=== PATIENT | female | born 1975 | race Caucasian/White ===

== ENCOUNTER 2016-08-09 10:31 | Inpatient (IN) | payer OTHER ==
[~2016-08-09] VITALS: Ht 160 cm; Wt 92.5 kg
[2016-08-09 13:30] VITALS: BP 135/83
[2016-08-09] MEDS ORDERED: HYDROmorphone 1 MG/ML, 1ML ONE ×2 (14:29→15:13)
[2016-08-09] MEDS ORDERED: HYDROmorphone PCA 30 MG/30 ML IV PRN ×2 (14:30→17:00)
[2016-08-09] MEDS ORDERED: POLYETHYLENE GLYCOL 17 GM PACKET PO PRN (14:30)
[2016-08-09] MEDS ORDERED: PROMETHAZINE 25 MG/ML, 1ML IM PRN (14:30)
[2016-08-09] MEDS: PLEASE ENTER HEIGHT AND WEIGHT MC SCH ×2 (14:30→22:30)
[2016-08-09] MEDS ORDERED: ONDANSETRON ODT 4 MG PO PRN (14:30)
[2016-08-09] MEDS ORDERED: HYDROmorphone 1 MG/ML, 1ML IV ONE ×4 (14:30→19:30)
[2016-08-09] MEDS ORDERED: LABETALOL 5MG/ML, 20ML IVPush PRN (14:30)
[2016-08-09] MEDS ORDERED: DEXAMETHASONE 4 MG/ML, 1ML IVPush ONE (14:30)
[2016-08-09] MEDS ORDERED: PLEASE ENTER ALLERGIES MC SCH ×2 (14:30)
[2016-08-09] MEDS ORDERED: ONDANSETRON 2MG/ML, 2ML IVPush PRN (14:30)
[2016-08-09] MEDS: SODIUM CHLORIDE 0.9% 1,000 ML IV SCH (14:34)
[2016-08-09 14:46] LABS: ASPARTATE AMINO TRANSFERASE 28 U/L (15-37); BLOOD UREA NITROGEN 13 mg/dL (7-18)
[2016-08-09] MEDS ORDERED: HYDROmorphone PCA 30 MG/30 ML ONE (15:25)
[2016-08-09] MEDS: DEXAMETHASONE 4 MG/ML, 1ML IVPush SCH ×2 (15:30→20:21)
[2016-08-09] MEDS: PLEASE ENTER ALLERGIES MC SCH ×4 (16:15→16:45)
[2016-08-09] MEDS: GABAPENTIN 400 MG CAPSULE PO SCH ×2 (17:32→20:22)
[2016-08-09 18:23] VITALS: BP 134/80
[2016-08-09] MEDS: FAMOTIDINE 20 MG/2 ML IVPush SCH (20:21)
[2016-08-09] MEDS: CARISOPRODOL 350 MG TABLET PO PRN (20:22)
[2016-08-09] MEDS ORDERED: KETOROLAC 30 MG/1 ML IVPush ONE (21:00)
[2016-08-10 00:10] VITALS: BP 128/72
[2016-08-10] MEDS: DEXAMETHASONE 4 MG/ML, 1ML IVPush SCH ×3 (04:11→16:35)
[2016-08-10] MEDS: CARISOPRODOL 350 MG TABLET PO PRN (04:11)
[2016-08-10] MEDS: PLEASE ENTER HEIGHT AND WEIGHT MC SCH (06:05)
[2016-08-10 06:29] LABS: ASPARTATE AMINO TRANSFERASE 15 U/L (15-37); BLOOD UREA NITROGEN 11 mg/dL (7-18)
[2016-08-10] MEDS: GABAPENTIN 400 MG CAPSULE PO SCH ×2 (08:02→16:35)
[2016-08-10] MEDS: FAMOTIDINE 20 MG/2 ML IVPush SCH (08:12)
[2016-08-10 08:20] VITALS: BP 125/81
[2016-08-10] MEDS ORDERED: SENNA/DOCUSATE TABLET PO SCH (09:00)
[2016-08-10] MEDS ORDERED: DIAZEPAM 5 MG/ML, 2ML IV PRN (12:53)
[2016-08-10] MEDS: SODIUM CHLORIDE 0.9% 1,000 ML IV SCH (14:13)
[2016-08-10 16:00] VITALS: BP 119/75
[2016-08-10 17:50] VITALS: BP 120/74
[2016-08-10] MEDS ORDERED: MIDAZOLAM 1 MG/ML, 2ML ONE (19:35)
[2016-08-10] MEDS ORDERED: FENTANYL PF 250 MCG/5ML ONE (19:35)
[2016-08-10] MEDS ORDERED: THROMBIN 20,000 UNIT VIAL TP ONE ×2 (19:58→21:43)
[2016-08-10] MEDS ORDERED: BUPIVACAINE/PF-EPI 0.5% 1:200K ONE (19:58)
[2016-08-10] MEDS ORDERED: BACITRACIN 50,000 UNIT ONE (19:58)
[2016-08-10] MEDS ORDERED: REMIFENTANIL 2 MG ONE (20:02)
[2016-08-10] MEDS ORDERED: KETAMINE 10 MG/ML, 20ML ONE (20:03)
[2016-08-10] MEDS ORDERED: DEXAMETHASONE 4 MG/ML, 1ML ONE (20:56)
[2016-08-10] MEDS ORDERED: PROPOFOL 10 MG/ML, 20ML ONE (20:56)
[2016-08-10] MEDS ORDERED: CEFAZOLIN 1,000 MG ONE (20:56)
[2016-08-10] MEDS ORDERED: SUCCINYLCHOLINE 20 MG/ML, 10ML ONE (20:56)
[2016-08-10] MEDS ORDERED: ROCURONIUM 10 MG/ML ONE (20:56)
[2016-08-10] MEDS ORDERED: PROPOFOL 10 MG/ML, 50ML ONE (20:56)
[2016-08-10] MEDS ORDERED: BACITRACIN 50,000 UNIT IRRIG ONE (21:43)
[2016-08-10] MEDS ORDERED: BUPIVACAINE/PF-EPI 0.5% 1:200K IM ONE (21:44)
[2016-08-10] MEDS ORDERED: ACETAMINOPHEN 325 MG TABLET PO PRN (23:00)
[2016-08-10] MEDS ORDERED: KETOROLAC 30 MG/1 ML IV PRN (23:00)
[2016-08-10] MEDS ORDERED: PROMETHAZINE 25 MG/ML, 1ML IV PRN (23:00)
[2016-08-10] MEDS ORDERED: OXYcodone 5 MG/5 ML ORAL.SOL UDC PO PRN (23:00)
[2016-08-10] MEDS ORDERED: ONDANSETRON 2MG/ML, 2ML IVPush PRN (23:00)
[2016-08-10] MEDS ORDERED: MEPERIDINE/PF 25MG/0.5ML IVPush PRN (23:00)
[2016-08-10] MEDS ORDERED: FENTANYL PF 100 MCG/2ML ONE (23:09)
[2016-08-10] MEDS ORDERED: ONDANSETRON 2MG/ML, 2ML ONE (23:09)
[2016-08-10] MEDS ORDERED: HYDROmorphone 2 MG/ML, 1ML ONE (23:09)
[2016-08-10] MEDS: HYDROmorphone 1 MG/ML, 1ML IV PRN ×4 (23:16→23:58)
[2016-08-10] MEDS: FENTANYL PF 100 MCG/2ML IV PRN ×2 (23:16→23:46)
[2016-08-10] MEDS ORDERED: ACETAMINOPHEN 650 MG/20.3 ML UDC ONE (23:32)
[2016-08-10] MEDS ORDERED: OXYcodone 5 MG/5 ML ORAL.SOL UDC ONE (23:32)
[2016-08-10] MEDS ORDERED: HYDROmorphone PCA 30 MG/30 ML ONE (23:32)
[2016-08-11] MEDS ORDERED: HYDROmorphone PCA 30 MG/30 ML IV PRN ×2 (00:30)
[2016-08-11] MEDS ORDERED: HYDROmorphone 2 MG/ML, 1ML IM PRN (01:30)
[2016-08-11] MEDS ORDERED: METHOCARBAMOL 1,000 MG in DEXTROSE 5% 100 ML IV ONE (01:30)
[2016-08-11] MEDS ORDERED: NS + 20MEQ KCL 1,000 ML IV SCH (01:30)
[2016-08-11] MEDS ORDERED: HYDROmorphone 2MG TABLET PO PRN (01:30)
[2016-08-11] MEDS ORDERED: HYDROcodone/APAP 5/325 TABLET PO PRN (01:30)
[2016-08-11] MEDS ORDERED: BISACODYL 10 MG SUPP PR PRN (01:30)
[2016-08-11] MEDS ORDERED: MAGNESIUM HYDROXIDE 8%, 30ML UDC PO PRN (01:30)
[2016-08-11] MEDS ORDERED: HYDROcodone/APAP 10/325 MG TABLET PO PRN (01:30)
[2016-08-11] MEDS ORDERED: DIPHENHYDRAMINE 50 MG/ML, 1ML IVPush PRN (01:30)
[2016-08-11] MEDS ORDERED: PROMETHAZINE 25 MG/ML, 1ML IM PRN (01:30)
[2016-08-11] MEDS ORDERED: ONDANSETRON 2MG/ML, 2ML IV PRN (01:30)
[2016-08-11] MEDS ORDERED: DIPHENHYDRAMINE 50 MG/ML, 1ML IM PRN (01:30)
[2016-08-11] MEDS ORDERED: DIPHENHYDRAMINE 50 MG CAPSULE PO PRN (01:30)
[2016-08-11] MEDS ORDERED: CEFAZOLIN PMX 2GM/50ML 50 ML IVPB SCH (01:30)
[2016-08-11] MEDS ORDERED: PHARMACY MAY ADJ FOR RENAL FX MC PRN (02:00)
[2016-08-11] MEDS: DEXAMETHASONE 4 MG/ML, 1ML IV SCH ×2 (02:19→08:44)
[2016-08-11 03:57] VITALS: BP 123/77
[2016-08-11 06:41] VITALS: BP 126/73
[2016-08-11 06:47] LABS: ASPARTATE AMINO TRANSFERASE 14 U/L (15-37); BLOOD UREA NITROGEN 16 mg/dL (7-18)
[2016-08-11] MEDS ORDERED: SENNA/DOCUSATE TABLET PO SCH (09:00)
[2016-08-11] MEDS ORDERED: METHOCARBAMOL 750 MG in DEXTROSE 5% 100 ML IV SCH (09:30)
[2016-08-11] MEDS ORDERED: HYDR-3307 PO (12:21)
[2016-08-11] MEDS ORDERED: DOCU-30 PO (12:22)
[2016-08-11] MEDS ORDERED: METH4TAB2 PO (12:23)
[2016-08-11] MEDS ORDERED: METH750T87 PO (12:24)
[2016-08-11] MEDS ORDERED: ZOLPIDEM 5MG TABLET PO PRN (21:00)
[2016-08-13] MEDS ORDERED: METHOCARBAMOL 750 MG TABLET PO SCH (09:30)
== END 2016-08-11 12:50 | disposition home or self-care (01) | DRG 472 ==
LOC: 4NOR 13:20
PROVIDERS: ADMIT Internal Medicine; ATTEND Internal Medicine
PROC: 0RB30ZZ Excision of Cervical Vertebral Disc, Open Approach (ICD-10-PCS; 2016-08-10)
PROC: 01N10ZZ Release Cervical Nerve, Open Approach (ICD-10-PCS; 2016-08-10)
PROC: 4A11X4G Monitoring of Peripheral Nervous Electrical Activity, Intraoperative, External Approach (ICD-10-PCS; 2016-08-10)
PROC: 0RG10A0 Fusion of Cervical Vertebral Joint with Interbody Fusion Device, Anterior Approach, Anterior Column, Open Approach (ICD-10-PCS; principal; 2016-08-10 18:30)
DX: M50.022 Cervical disc disorder at C5-C6 level with myelopathy (principal); G95.89 Other specified diseases of spinal cord; K21.9 Gastro-esophageal reflux disease without esophagitis; E66.01 Morbid (severe) obesity due to excess calories; R73.9 Hyperglycemia, unspecified; D72.829 Elevated white blood cell count, unspecified; M50.122 Cervical disc disorder at C5-C6 level with radiculopathy; T38.0X5A Adverse effect of glucocorticoids and synthetic analogues, initial encounter; Y92.89 Other specified places as the place of occurrence of the external cause; Z68.36 Body mass index [BMI] 36.0-36.9, adult; Z90.710 Acquired absence of both cervix and uterus; Z90.49 Acquired absence of other specified parts of digestive tract; Z87.01 Personal history of pneumonia (recurrent); Z90.89 Acquired absence of other organs; Z91.048 Other nonmedicinal substance allergy status
CPT/HCPCS: 36415; 72040; 80053; 83690; 83735; 84439; 85025; 85610; 85730; J0690; J1100; J1170; J1885; J2250; J2405; J2704; J3010; J3360; J3480; J0330; J2800; J7030; S0028